=== PATIENT | male | born 1980 | race Caucasian/White ===

== ENCOUNTER 2022-10-05 05:55 | Outpatient (CLI) | payer OTHER, SELFPAY ==
[2022-10-05 06:33] VITALS: BP 142/94; PULSE 62; RESP 18; TEMP 36.7; O2SAT 99; BMI 23.4
--- NOTE | 2022-10-05 07:06 | P.HP_ITS ---
Providers/Chief Complaint Admitting Physician: ALBAN Hopson Primary Care Provider: Alton Bautista MD Chief Complaint: Explant the loop recorder History of Present Illness David Rouse is a 42 year old male who had an implantable monitoring and evaluation advisor inserted 3 years ago to evaluate cryptogenic stroke. The device has re.ached end-of-life. Device explant was recommended. Patient denies any fever or chills. No cough. No shortness of breath. No specific complaints. The device was implanted on 10/10/2018. The patient apparently postponed the explant until now. Review of Systems Narrative: CONSTITUTIONAL: No fever or chills. [] EYES: No blurring of vision or other visual disturbances lately. ENT: No hoarseness of voice, auditory disturbances or sore throat. CARDIOVASCULAR: As mentioned above. RESPIRATORY: No significant cough. GASTROINTESTINAL: No hematemesis or melena. GENITOURINARY: No dysuria or hematuria. INTEGUMENTARY: No skin rashes or history of skin cancer. NEURO: No transient ischemic attacks or amaurosis. PSYCHIATRIC: No history of psychosis or major depression. HEMATOLOGIC: No bleeding disorders or significant anemia. ENDOCRINE: No history of polyuria or polydipsia. MUSCULOSKELETAL: No recent joint pain or swelling. ALLERGY/IMMUNOLOGY: As mentioned above. Medications/Allergies Home Medications Medication Instructions Recorded Confirmed Last Taken Type aspirin 81 mg tablet,delayed 81 mg PO DAILY 03/06/22 10/05/22 10/04/22 21:30 History release (Adult Aspirin Regimen) Allergies Allergy/AdvReac Type Severity Reaction Status Date / Time metoprolol AdvReac Intermediate fatigue Verified 10/05/22 06:39 PFSH Acute PFSH: Medical History Asthma Cerebral embolism Cryptogenic stroke Hyperlipidemia Inappropriate sinus tachycardia Learning disability Sleep apnea Family History Family/Other Cancer Grandfather Cancer Father Parkinsons disease Other Unknown family medical history Denies family history of Diabetes CAD (coronary artery disease) Clotting disorder Dementia Chronic kidney disease (CKD) Suicide Anesthesia complication Bleeding disorder Lung disease Stroke Social History Smoking and tobacco status: never smoked Alcohol intake: never Vitals/I&O/Wt Last Vital Signs Temp 98.0 F 10/05/22 06:33 Pulse 62 10/05/22 06:33 Resp 18 10/05/22 06:33 BP 142/94 10/05/22 06:33 Pulse Ox 99 10/05/22 06:33 O2 Del Method 10/05/22 06:33 Weight last 48 hrs Weight 141 lb Physical Exam Narrative: GENERAL: The patient is alert and oriented times three. Not in any acute distress. HEENT: No significant pallor, icterus or lymphadenopathy.Oral cavity: There are no mucous membrane lesions. NECK: Trachea appears to be central. No masses noted. No JVD or thyromegaly appreciated. RESPIRATORY: Chest is symmetrical. No intercostals muscle retraction or any accessory muscle activation. There is no chest wall tenderness. Breath sounds are heard bilaterally. No rales or rhonchi heard. No evidence of any consolidation. BREASTS: Deferred. HEART: The heart sounds are normal. No S3 or S4. No significant murmurs. No pericardial rub ABDOMEN: No vessel pulsations or distention. No tenderness. No organomegaly appreciated. Bowel sounds are normally heard. : Deferred. RECTAL: Deferred. LYMPHATIC: No lymphadenopathy noted in the neck. EXTREMITIES: No edema or cyanosis. No clubbing. MUSCULOSKELETAL: No acute joint deformities or swelling SKIN: There are no significant rashes or ecchymosis NEUROPSYCHIATRIC: The patient is alert and oriented x3. Appears to be in a good mood. No tremors or rigidity noted. A&P Assessment and plan (1) Encounter for loop recorder at end of battery life: Since the device is reached end-of-life, patient requested this device to be explanted. We will go ahead with the procedure today. (2) Cerebral embolism: Has not had any recurrence since implant (3) Hyperlipidemia: Continue on the current management (4) Sleep apnea: (5) Inappropriate sinus tachycardia: Continue on the current medications. Recommended EP evaluation but the patient refused Plan I discussed with the patient the risks and benefits of the procedure. The risk of bleeding, infection, vascular injury and other concomitant complications were explained. Patient understood this well and consented to proceed. Attestations Medical Necessity Statement*: Possible discharge home after the explant Coding Level of Care Code 36989 Diagnoses Encounter for loop recorder at end of battery life Z45.09 Cerebral embolism I66.9 Hyperlipidemia E78.5 Sleep apnea G47.30 Inappropriate sinus tachycardia R00.0
--- NOTE | 2022-10-05 07:23 | P.HPUD_ITS ---
Surgery/Procedure H&P Update DATE OF PROCEDURE: October 05, 2022 DATE H&P PERFORMED: 10/05/22 H&P UPDATE INFORMATION: I have reviewed H&P completed within last 30 days, I have examined patient prior to procedure and No changes to prior documentation PREOP DIAGNOSIS: Implantable lead warehouse associate, end-of-life PRIMARY INDICATION FOR PROCEDURE: Device reaching end-of-life. PLANNED PROCEDURE: Operation Date: 10/05/22 07:00 Proposed Procedures p [id number] Loop Recorder Explantation,Z45.09(Not Applicable) - Huy Hopson MD
--- NOTE | 2022-10-05 07:24 | P.OP_ITS ---
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 Rufino Bautista PREOPERATIVE DIAGNOSIS: Recurrent syncope. POSTOPERATIVE DIAGNOSIS: same ESTIMATED BLOOD LOSS: None COMPLICATIONS: None. BRIEF HISTORY: This is a 42-year-old white [male] with a history of recurrent palpitations/cryptogenic stroke, had an ICM placement on 10/10/2018. This patient was found to inappropriate sinus tachycardia. Device has reached end-of-life. So it was decided to explant the device. The patient was postponing this procedure for a while and finally decided to go ahead with explant. PROCEDURE: The procedure was explained to the patient in detail with the risks and benefits. The risk of bleeding, vascular injury, infection and other concomitant complications were explained in detail. The patient understood this well and consented to proceed. The patient was brought to the Cardiac Head Turbine Operator. The left side of the neck and the precordial region were cleaned and draped in a sterile fashion. 1% Xylocaine was used as local anesthetic agent. A 1/4 of an inch long incision was made near to the previous implantation scar. By blunt dissection, the device pocket was accessed. The device was delivered from the pocket. Complete hemostasis was achieved. The skin was approximated with Steri-Strips EXPLANTED DEVICE: Reveal LINQ Model number: [id number] Serial number: [id number] Make: Apcera A sterile dressing was given at the insertion site. Patient tolerated the procedure very well and there were no complication
[2022-10-05 07:50] VITALS: BP 128/91; PULSE 65; RESP 18; O2SAT 98
[2022-10-05 08:15] VITALS: BP 123/95; PULSE 75; RESP 18; O2SAT 98
--- NOTE | 2022-10-05 09:00 | PC.NURSE ---
0900: Discharge orders received. Dressing over loop recorder excision site clean, dry, et intact. Vitals stable. No c/o pain or discomfort. Follow up appointment made. patient discharged from [facility] to home via private vehicle.
== END 2022-10-05 09:00 | disposition home or self-care (01) ==
PROVIDERS: PCP Family Medicine; Visit Provider Internal Medicine Cardiovascular Disease
PROC: (CPT 33286; principal; 2022-10-05 07:00)
DX: Z45.09 Encounter for adjustment and management of other cardiac device (principal); J45.909 Unspecified asthma, uncomplicated; E78.5 Hyperlipidemia, unspecified; G47.30 Sleep apnea, unspecified; Z86.73 Personal history of transient ischemic attack (TIA), and cerebral infarction without residual deficits; R00.0 Tachycardia, unspecified
CPT/HCPCS: 33286; C1769

== ENCOUNTER 2023-12-03 19:49 | Emergency (ER) | payer OTHER, SELFPAY ==
--- NOTE | 2023-12-03 19:50 | XRR_ITS ---
PROCEDURE INFORMATION: Exam: XR Chest Exam date and time: 12/03/2023 8:30 PM Age: 43 years old Clinical indication: Pain; Chest pressure; Additional info: Cp TECHNIQUE: Imaging protocol: Radiologic exam of the chest. Views: 1 view. COMPARISON: CR XR chest 1V [id number] 08/12/2018 12:48 PM FINDINGS: Lungs: Mild left lower lung linear atelectasis versus scarring. No consolidation. Pleural spaces: Unremarkable. No pleural effusion. No pneumothorax. Heart/Mediastinum: Unremarkable. No cardiomegaly. Bones/joints: Unremarkable. XR/XR chest 1V portable [id number] IMPRESSION: No acute findings.
--- NOTE | 2023-12-03 19:58 | ECG_ITS ---
[facility] Test Date: 2023-12-03 Pat Name: David Rouse Department: Room: Gender: Male Roll Over Loader: : 1980 Requested By: Addi Morales Order Number: [id number] Fabricio MD: Cristhian Bonilla M.D. Measurements Intervals [place] Rate: 92 P: 7 MI: 87 QRS: 61 QRSD: 100 T: 55 QT: 348 QTc: 432 Interpretive Statements SINUS RHYTHM WITH SHORT MI INTERVAL INCOMPLETE RIGHT BUNDLE BRANCH BLOCK [90+ ms QRS DURATION, TERMINAL R IN V1/V2, 40+ ms S IN I/aVL/V4/V5/V6] Compared to ECG 08/12/2018 12:28:16 No significant changes Electronically Signed On 12-04-2023 16:51:43 CDT by Cristhian Bonilla M.D. [id number]
[2023-12-03 19:59] VITALS: BP 156/92; PULSE 93; RESP 16; TEMP 36.7; O2SAT 98; BMI 25.0
--- NOTE | 2023-12-03 20:36 | ED_ITS ---
HPI - Chest Pain 2 General: Chief Complaint: Chest Pain Stated Complaint: CP Time Seen by Provider: 12/03/23 20:08 Source: patient Mode of arrival: ambulatory Limitations: no limitations History of Present Illness: 43-year-old male who states that he star sridhar having chest pain a little over an hour ago right after eating. States his pressure pain is lower chest. Denies any nausea or shortness of breath states pain lasted roughly 5 to 10 minutes and since resolved he has no history of heart issues he denies any vomiting or diarrhea. Associated symptoms: Deny abdominal pain, dyspnea, fever(s), nausea or vomiting Review of Systems 2 Const: Denies: fever(s), chills, body aches or change in appetite ENMT: Denies: throat pain or dental pain Card: Reports: chest pain Resp: Denies: dyspnea GI: Denies: abdominal pain, nausea, vomiting or diarrhea Musc: Denies: neck pain or back pain Skin/Breast: Denies: rash Neuro: Denies: headache(s) PFSH ED 2 PFSH: Medical History Learning disability Asthma Cerebral embolism Hyperlipidemia Sleep apnea Cryptogenic stroke Inappropriate sinus tachycardia Family History Family/Other Cancer Grandfather Cancer Father Parkinsons disease Other Unknown family medical history Denies family history of Diabetes CAD (coronary artery disease) Clotting disorder Dementia Chronic kidney disease (CKD) Suicide Anesthesia complication Bleeding disorder Lung disease Stroke Social History Smoking and tobacco/nicotine status: never used tobacco/nicotine Alcohol intake: never Substance/Drug Use: never Physical Exam 2 Const: COMMON NORMALS: no acute distress, patient oriented x3 and healthy appearing HENMT: COMMON NORMALS: normocephalic and atraumatic HEAD & SCALP: n ormocephalic and atraumatic Eye: COMMON NORMALS: Equal, round and reactive pupils present and EOMs intact bilaterally PUPIL: Yes Equal, round and reactive pupils present Neck/C-Spine: COMMON NORMALS: full ROM and supple Chest: COMMONS NORMALS: normal inspection of the chest and normal palpation of entire chest wall Resp: COMMON NORMALS: normal respiratory effort, No retractions, No use of accessory muscles and clear to auscultation bilaterally AUSCULTATION: clear to auscultation bilaterally Cardio: COMMON NORMALS: regular rate, regular rhythm and No murmurs present (Cardio) RATE: regular rate RHYTHM: regular rhythm GI: COMMON NORMALS: Normal to inspection, nondistended, normoactive bowel sounds present, Soft to palpation, non-tender and no masses PALPATION: Yes Soft to palpation Extremity: COMMON NORMALS: normal to inspection and full ROM Neuro: COMMON NORMALS: patient oriented x3, moves all extremities and no focal motor deficits Psych: COMMON NORMALS: mental status grossly normal, Normal thought process present and cooperative THOUGHT PROCESS: Normal thought process present Skin: COMMON NORMALS: no rashes or lesions noted and no wounds GENERAL SKIN EXAM: no rashes or lesions noted Course 2 Vital Signs: Vital signs: Vital Signs Temperature 98.0 F 12/03/23 19:59 Pulse Rate 97 12/03/23 20:46 Respiratory Rate 23 H 12/03/23 20:46 Blood Pressure 145/100 12/03/23 20:46 Pulse Oximetry 96 12/03/23 20:46 Oxygen Delivery Me thod Room Air 12/03/23 20:46 MDM - Chest Pain Medical Decision Making Patient presents for chest pains atypical in nature his troponins here are normal he is been pain-free here he has no signs acute coronary syndrome no signs of pulmonary embolism or dissection he is stable for discharge he is follow-up with PCP return if worsening Medical Records I reviewed the patient's medical records. Lab Data I reviewed the patient's lab results. 12/03/23 20:28 12/03/23 20:28 Radiology Impressions Chest X-Ray 12/03/23 19:50 IMPRESSION: No acute findings. Laboratory Results WBC 8.21 10^3/uL (3.29-11.43) 12/03/23 20:28 RBC 5.04 10^6/uL (3.85-5.65) 12/03/23 20:28 Hgb 14.90 g/dL (11.27-16.99) 12/03/23 20:28 Hct 44.5 % (37-53) 12/03/23 20:28 MCV 88.3 fl (82-101) 12/03/23 20: MCH 29.6 pg (27-33) 12/03/23 20:28 MCHC 33.5 g/dL (30-55) 12/03/23 20: RDW 13.2 % (12.1-15.1) 12/03/23 20: Plt Count 219 10^3/cmm (157-399) 12/03/23 20: MPV 9.4 fL (7.4-10.4) 12/03/23 20: Neut % (Auto) 64.1 % 12/03/23 20: Lymph % (Auto) 27.2 % 12/03/23 20: Tompkins % (Auto) 6.7 % 12/03/23 20: Eos % (Auto) 1.1 % 12/03/23 20: Baso % (Auto) 0.7 % 12/03/23: Neut # (Auto) 5.26 10^3/uL (1.8-7.7) 12/03/23 20: Lymph # (Auto) 2.2 10^3/uL (0.8-4.8) 12/03/23: Tompkins # (Auto) 0.6 10^3/uL (0.2-0.9) 12/03/23 20: Eos # (Auto) 0.1 10^3/uL (0.0-0.8) 12/03/23: Baso # (Auto) 0.1 10^3/uL (0.0-0.1) 12/03/23 20: Nucleated RBC % (auto) 0 % 12/03/23: Nucleated RBCs # 0.0 /100WBC 12/03/23 20: Sodium 139 mmol/L (136-145) 12/03/23 20: Potassium 3.8 mmol/L (3.5-5.1) 12/03/23 20: Chloride 102 mmol/L (98-107) 12/03/23 20: Carbon Dioxide 26 mmol/L (22-29) 12/03/23 20: Anion Gap 14.8 (5-19) 12/03/23 20: BUN 13 mg/dL (6-20) 12/03/23 20: Creatinine 1.0 mg/dL (0.7-1.2) 12/03/23 20:28 GFR Calculation 81.6 mL/min (90-130) L 12/03/23 20:28 Glucose 103 mg/dL (65-115) 12/03/23 20:28 Calculated Osmolality 288 mOsm/kg (285-295) 12/03/23 20:28 Calcium 9.4 mg/dL (8.5-10.5) 12/03/23 20:28 Total Bilirubin 0.4 mg/dL (0.15-1.2) 12/03/23 20:28 AST 28 U/L (0-40) 12/03/23 20:28 ALT 41 U/L (0-41) 12/03/23 20:28 Alkaline Phosphatase 66 U/L (40-130) 12/03/23 20:28 Troponin T Baseline < 6 ng/L (0-15) 12/03/23 20:28 Troponin T 120 Minute 6.00 ng/L (0-15) 12/03/23 22:36 Delta Troponin T 0.64333 ABS# (0-10) 12/03/23 22:36 Total Protein 7.6 g/dL (6.6-8.7) 12/03/23 20:28 Albumin 4.4 g/dL (3.5-5.2) 12/03/23 20:28 Globulin 3.2 g/dL (1.3-4.6) 12/03/23 20:28 Lipase 82 U/L (13-60) H 12/03/23 20:28 All radiology interpretation(s) finalized by discharge EKG Data EKG 1: I personally reviewed and interpreted this EKG as follows: EKG interpretation date: 12/03/23 EKG interpretation time: 19:58 Interpretation: nsr hr [address] or t wave abnormalities qrs 100 qtc 398 EKG 2: I personally reviewed and interpreted this EKG as follows: EKG interpretation date: 12/03/23 EKG interpretation time: 21:46 Interpretation: nsr hr [address] or t wave abnormalities qrs 102 qtc 416 Discharge Plan Discharge Patient Disposition: Home Clinical Impression: Chest pain Condition: Stable Prescriptions: No Action aspirin [Adult Aspirin Regimen] 81 mg tablet,delayed release (DR/EC) 81 mg PO DAILY Discharge Orders: Discharge ED (Routine); Ordered 12/03/23 Ordered By: Addi Morales Referrals: Alton Bautista MD [Primary Care Provider] - 1-3 days Discharge Diet: Advance as tolerated Discharge Activity: Resume usual activity Patient Instructions: Chest Pain (ED) Coding Level of Care Code ED [employer] for Jhonathan Morales
[2023-12-03 20:37] LABS: Basophils # 0.1 10^3/uL (0.0-0.1); Basophils % 0.7 %; Eosinophils # 0.1 10^3/uL (0.0-0.8); Eosinophils % 1.1 %; Hematocrit 44.5 % (37-53); Lymphocytes # 2.2 10^3/uL (0.8-4.8); Lymphocytes % 27.2 %; Mean Corpuscular HGB Conc 33.5 g/dL (30-55); Mean Corpuscular Hemoglobin 29.6 pg (27-33); Mean Corpuscular Volume 88.3 fl (82-101); Mean Platelet Volume 9.4 fL (7.4-10.4); Monocytes # 0.6 10^3/uL (0.2-0.9); Monocytes % 6.7 %; Neutrophils # 5.26 10^3/uL (1.8-7.7); Neutrophils % 64.1 %; Nucleated Red Blood Cells % 0 %; Platelet Count 219 10^3/cmm (157-399); Red Blood Count 5.04 10^6/uL (3.85-5.65); Red Cell Distribution Width 13.2 % (12.1-15.1); White Blood Count 8.21 10^3/uL (3.29-11.43)
[2023-12-03] MEDS: aspirin 81 mg Chew Tablet 324 MG PO (20:41)
[2023-12-03 20:46] VITALS: BP 145/100; PULSE 97; RESP 23; O2SAT 96
[2023-12-03 20:57] LABS: Troponin(5th) Baseline < 6 ng/L (0-15)
[2023-12-03 20:58] LABS: Alanine Aminotransferase 41 U/L (0-41); Albumin Level 4.4 g/dL (3.5-5.2); Alkaline Phosphatase 66 U/L (40-130); Anion Gap 14.8 (5-19); Aspartate Amino Transferase 28 U/L (0-40); Blood Urea Nitrogen 13 mg/dL (6-20); Calcium 9.4 mg/dL (8.5-10.5); Carbon Dioxide 26 mmol/L (22-29); Chloride 102 mmol/L (98-107); Globulin 3.2 g/dL (1.3-4.6); Glomerular Filtration Rate 81.6 mL/min (90-130); Glucose 103 mg/dL (65-115); Lipase 82 U/L (13-60); Osmolality Calculated 288 mOsm/kg (285-295); Potassium 3.8 mmol/L (3.5-5.1); Sodium 139 mmol/L (136-145); Total Bilirubin 0.4 mg/dL (0.15-1.2); Total Protein 7.6 g/dL (6.6-8.7)
[2023-12-03 21:00] VITALS: BP 137/91; PULSE 87; RESP 16; O2SAT 96
--- NOTE | 2023-12-03 21:50 | ECG_ITS ---
[facility] Test Date: 2023-12-03 Pat Name: David Rouse Department: Room: Gender: Male Imaging Assistant: : 1980 Requested By: Addi Morales Order Number: [id number] Fabricio MD: Cristhian Bonilla M.D. Measurements Intervals [place] Rate: 84 P: 55 TX: 100 QRS: 58 QRSD: 102 T: 49 QT: 375 QTc: 445 Interpretive Statements SINUS RHYTHM WITH SHORT TX INTERVAL INCOMPLETE RIGHT BUNDLE BRANCH BLOCK [90+ ms QRS DURATION, TERMINAL R IN V1/V2, 40+ ms S IN I/aVL/V4/V5/V6] Compared to ECG 08/12/2018 12:28:16 No significant changes Electronically Signed On 12-04-2023 16:58:58 CDT by Cristhian Bonilla M.D. [id number]
[2023-12-03 22:00] VITALS: PULSE 88; RESP 16; O2SAT 100
[2023-12-03 23:05] LABS: Troponin 5 2HR Delta 0.00001 ABS# (0-10)
[2023-12-03 23:22] VITALS: BP 138/83; PULSE 79; RESP 12; O2SAT 97
[2023-12-03 23:26] VITALS: BP 133/85; PULSE 76; RESP 15; O2SAT 97
== END 2023-12-03 23:29 | disposition home or self-care (01) ==
PROVIDERS: Emergency Provider Emergency Medicine; PCP Family Medicine
DX: R07.9 Chest pain, unspecified (principal); Z79.82 Long term (current) use of aspirin; E78.5 Hyperlipidemia, unspecified
CPT/HCPCS: 36415; 71045; 80053; 83690; 84484; 85025; 93005; 99285